=== PATIENT | female | born 1985 | race Native Hawaiian/Other Pacific Islander ===

== ENCOUNTER 2018-10-31 09:19 | Inpatient (IN) | payer MEDICAID ==
[2018-10-31 09:20] VITALS: BMI 30.1
--- NOTE | 2018-10-31 09:47 | C.PDOC ---
History Of Present Illness 33 y/o A0 12-week female sent here by the clinic for abnormal lab results. Pt was seen at [facility] last week for a check up and was called yesterday for abnormal results and advised to come to the hospital. States her hemoglobin has been as low as 8 before. No history of transfusion. Pt denies any physical complaints. Denies vaginal bleeding, dark stools, hematochezia, N/V, hemoptysis, hematemesis, fever, chills, dizziness, headache, palpitations, chest pain, abdominal pain, or any other associated symptoms. Time Seen by Provider: 10/31/18 09:30 Chief Complaint (Nursing): Abnormal Labs Past Medical History Vital Signs: Last Vital Signs Temp 98.5 F 10/31/18 09:22 Pulse 96 H 10/31/18 09:22 Resp 18 10/31/18 09:22 BP 113/76 10/31/18 09:22 Pulse Ox 100 10/31/18 09:22 - [facility] Procedures LOW CERVICAL (12/03/13) Family History: States: No Known Family Hx - Social History Hx Alcohol Use: No Hx Substance Use: No - Immunization History Hx Tetanus Toxoid Vaccination: No Hx Influenza Vaccination: No Hx Pneumococcal Vaccination: No Physical Exam - Physical Exam Appears: Well, No Acute Distress Skin: Normal Color, Warm, Dry Head: Atraumatic, Normacephalic, No Tenderness Eye(s): bilateral: Normal Inspection, PERRL, EOMI, Conjunctiva Pale Ear(s): Bilateral: Normal Nose: Normal Throat: Normal Neck: Normal Cardiovascular: Rhythm Regular Respiratory: Normal Breath Sounds Gastrointestinal/Abdominal: Normal Exam Rectal: Normal Exam, Rectal Tone (normal), Heme Negative Back: Normal Inspection, No CVA Tenderness Pelvic: Normal External Exam, Normal Speculum Exam, Normal Bimanual Exam Extremity: Normal ROM, No Tenderness, No Calf Tenderness, No Deformity, No Swelling Extremity: Bilateral: Atraumatic, Normal ROM, Other (pale) Pulses: Left Radial: Normal, Right Radial: Normal, Left Dorsalis Pedis: Normal, Right Dorsalis Pedis: Normal Neurological/Psych: Oriented x3, Normal Speech, Normal Cognition, Normal Motor, Normal Sensation ED Course And Treatment - Laboratory Results Result Diagrams: 10/31/18 09:48 12/20/18 09:48 Lab Interpretation: Abnormal Urine POC: Positive ECG: Viewed By Me ECG Rhythm: Sinus Rhythm ECG Interpretation: No Acute Changes Interpretation Of ECG: rate 88; NSR; short VA, no WPW; no STEMI, t wave inverted in V1 Rate From EC O2 Sat by Pulse Oximetry: 100 Pulse Ox Interpretation: Normal Medical Decision Making Medical Decision Making: Initial Plan: * CBC, CMP * UA, culture * hcg quant * TV US * IVF TV US shows live IUP 12 weeks gestation Hgb 6.5, will consent for blood transfusion and type/cross for PRBC. Risks of transfusion discussed in depth with patient, who verbalized understanding and was given the opportunity to ask questions. Witnessed by nursing. 10:[address] Velasquez, OBGYN, advises that since patient is under 20 weeks gestation, she can be admitted to medical service with OBGYN consult as needed. No extra considerations in setting of blood transfusion in OB patient. Advises 1g of Rocephin for UTI. 11:[address] Adair, who accepted patient for inpatient admission to telemetry with diagnosis of anemia. Vital signs stable at this time, patient resting comfortably in stretcher. Disposition Discussed With : Shawanda Velasquez Comment: No special considerations for blood transfusion in . 1g rocephin for UTI. - Disposition Disposition: HOSPITALIZED Disposition Time: 11:00 Condition: STABLE - Clinical Impression Clinical Impression: Anemia,
[2018-10-31 10:03] LABS: SQUAMOUS EPITHIAL 13 /hpf (0-5); URINE BACTERIA RARE (<OCC); URINE BILIRUBIN NEGATIVE (NEGATIVE); URINE BLOOD NEGATIVE (NEGATIVE); URINE CLARITY Hazy (Clear); URINE COLOR Yellow (YELLOW); URINE GLUCOSE (UA) NORMAL (Normal); URINE LEUKOCYTE ESTERASE 3+ Leu/uL (Negative); URINE PROTEIN NEGATIVE (NEGATIVE); URINE UROBILINOGEN NORMAL mg/dL (0.2-1.0)
[2018-10-31 10:05] LABS: ALB/GLOB RATIO 1.3 (1.0-2.1); ALT/SGPT 22 U/L (9-52); AST/SGOT 22 U/L (14-36); BLOOD UREA NITROGEN 5 mg/dL (7-17); CALCIUM 8.7 mg/dl (8.6-10.4); GFR NON-AFRICAN AMERICAN > 60
[2018-10-31 10:11] LABS: BASO # 0.1 K/uL (0.0-0.2); BASO % 0.7 % (0.0-2.0); EOS % 0.2 % (0.0-4.0); LYMPH # 2.5 K/uL (1.0-4.3); LYMPH % 24.4 % (20.0-40.0); MEAN CORPUSCULAR HEMOGLOBIN 13.3 pg (27.0-31.0); MEAN CORPUSCULAR HGB CONC 27.3 g/dL (33.0-37.0); MONO # 0.7 K/uL (0.0-0.8); MONO % 6.4 % (0.0-10.0); NEUT % 68.3 % (50.0-75.0); RBC 4.89 Mil/uL (3.80-5.20); RED CELL DISTRIBUTION WIDTH 23.1 % (11.5-14.5); WHITE BLOOD COUNT 10.3 K/uL (4.8-10.8)
[2018-10-31 10:12] LABS: MEAN CELL VOLUME 48.9 fL (81.0-99.0)
[2018-10-31 10:15] LABS: HEMOGLOBIN 6.5 g/dL (11.0-16.0)
[2018-10-31 10:36] LABS: INR 1.2; PROTHROMBIN TIME 12.7 SECONDS (9.7-12.2)
--- NOTE | 2018-10-31 11:04 | US ---
1st trimester ultrasound Indication: r/o ectopic. LMP 08/06/18 Comparison: None available Technique: Transabdominal pelvic ultrasound Findings: The uterus measures approximately 13.4 x 8.0 x 9.9 cm. Anteverted uterus. Cervix length measures approximately 3.7 cm. There is a single intrauterine fetus present. Yolk sac is not visualized. The crown-rump length measures 5.7 cm and is compatible with a gestational age of 12 weeks 2 days. There is heart motion which measured 150.2 BPM. The right ovary measures 5.0 x 2.5 x 3.5 cm. 2.6 x 2.4 x 2.2 cm probable right corpus luteal cyst. The left ovary measures 3.5 x 1.5 x 2.5. Flow was demonstrated to both ovaries. Impression: Live single intrauterine with estimated gestational age 12 weeks 2 days. heart rate 150.2 bpm. Advise an anomaly screen at 16-18 weeks gestational age 2.6 x 2.4 x 2.2 cm probable right corpus luteum.
[2018-10-31] MEDS ORDERED: cefTRIAXone 1 gm 1 GM/100 ML BAG IVPB ONE (12:05)
[2018-10-31 13:55] VITALS: RESP 20
--- NOTE | 2018-10-31 14:56 | CP.PCM.CON ---
History of Present Illness - History of Present Illness History of Present Illness: 33 year old female currently 12 weeks , sent to the hospital for anemia. The patient was found to have a low hgb at her PMDs and told to report to the hospital. In the ER, her hgb was found to be 6.5. She denies abnormal bleeding and bruising. Her hgb prior to becoming was around 8. Past medical history: Anemia Past surgical history: Family history: Denies hematologic and oncologic problems Social history: Denies tobacco, alcohol, and illicit drug use. Allergies: NKA Review of systems: All remaining review of systems including HEENT, cardiovascular, respiratory, gastrointestinal, genitourinary, musculoskeletal, dermatologic, neurologic, and psychiatric are negative unless mentioned in the HPI. Past Patient History - Past Medical History & Family History Past Medical History?: Yes - Past Social History Smoking Status: Never Smoked - PSYCHIATRIC Hx Substance Use: No - SURGICAL HISTORY Hx Surgeries: Yes Hx Section: Yes (X2) - ANESTHESIA Hx Anesthesia: Yes Hx Anesthesia Reactions: No Meds Allergies/Adverse Reactions: Allergies Allergy/AdvReac Type Severity Reaction Status Date / Time No Known Allergies Allergy Verified 10/31/18 09:27 Physical Exam - Head Exam Head Exam: ATRAUMATIC - Eye Exam Eye Exam: Normal appearance - ENT Exam ENT Exam: Mucous Membranes Dry - Respiratory Exam Respiratory Exam: NORMAL BREATHING PATTERN - Cardiovascular Exam Cardiovascular Exam: +S1, +S2 - GI/Abdominal Exam GI & Abdominal Exam: Normal Bowel Sounds - Extremities Exam Extremities exam: Positive for: normal inspection - Neurological Exam Neurological exam: Oriented x3 - Psychiatric Exam Psychiatric exam: Normal Affect, Normal Mood - Skin Skin Exam: Warm Results - Vital Signs Recent Vital Signs: Last Vital Signs Temp 98.3 F 10/31/18 14:32 Pulse 90 10/31/18 14:32 Resp 20 10/31/18 14:32 BP 96/59 L 10/31/18 14:32 Pulse Ox 96 10/31/18 14:32 - Labs Result Diagrams: 10/31/18 09:48 10/31/18 09:48 Labs: Laboratory Results - last 24 hr 10/31/18 10/31/18 10/31/18 09:48 09:48 09:48 WBC 10.3 RBC 4.89 Hgb 6.5 L* D Hct 23.9 L MCV 48.9 L D MCH 13.3 L MCHC 27.3 L RDW 23.1 H Plt Count 245 MPV 9.0 Neut % (Auto) 68.3 Lymph % (Auto) 24.4 [place] % (Auto) 6.4 Eos % (Auto) 0.2 Baso % (Auto) 0.7 Neut # (Auto) 7.0 Lymph # (Auto) 2.5 [place] # (Auto) 0.7 Eos # (Auto) 0.0 Baso # (Auto) 0.1 Differential Comment PT INR APTT Sodium 135 Potassium 4.0 Chloride 101 Carbon Dioxide 25 Anion Gap 13 BUN 5 L Creatinine 0.4 L Est GFR ( Amer) > 60 Est GFR (Non-Af Amer) > 60 Random Glucose 105 Calcium 8.7 Total Bilirubin 0.5 AST 22 ALT 22 Alkaline Phosphatase 56 Total Protein 7.0 Albumin 4.0 Globulin 3.1 Albumin/Globulin Ratio 1.3 Beta HCG, Quant 460556.00 Urine Color Yellow Urine Clarity Hazy Urine pH 7.0 Ur Specific [place] 1.009 Urine Protein Negative Urine Glucose (UA) Normal Urine Ketones Negative Urine Blood Negative Urine Nitrate Negative Urine Bilirubin Negative Urine Urobilinogen Normal Ur Leukocyte Esterase 3+ H Urine WBC (Auto) 11 H Urine RBC (Auto) 1 Ur Squamous Epith Cells 13 H Urine Bacteria Rare Blood Type Antibody Screen 10/31/18 10/31/18 09:58 09:58 WBC RBC Hgb Hct MCV MCH MCHC RDW Plt Count MPV Neut % (Auto) Lymph % (Auto) [place] % (Auto) Eos % (Auto) Baso % (Auto) Neut # (Auto) Lymph # (Auto) [place] # (Auto) Eos # (Auto) Baso # (Auto) Differential Comment PT 12.7 H INR 1.2 APTT 29 Sodium Potassium Chloride Carbon Dioxide Anion Gap BUN Creatinine Est GFR ( Amer) Est GFR (Non-Af Amer) Random Glucose Calcium Total Bilirubin AST ALT Alkaline Phosphatase Total Protein Albumin Globulin Albumin/Globulin Ratio Beta HCG, Quant Urine Color Urine Clarity Urine pH Ur Specific [place] Urine Protein Urine Glucose (UA) Urine Ketones Urine Blood Urine Nitrate Urine Bilirubin Urine Urobilinogen Ur Leukocyte Esterase Urine WBC (Auto) Urine RBC (Auto) Ur Squamous Epith Cells Urine Bacteria Blood Type A POSITIVE Antibody Screen Negative Assessment & Plan (1) Anemia Assessment and Plan: retic count, b12, folate, ferritin 2U PRBC will start IV iron Thank you for this interesting consult. Status: Acute
--- NOTE | 2018-10-31 17:43 | CP.PCM.HP ---
Past Patient History - Past Medical History & Family History Past Medical History?: Yes - Past Social History Smoking Status: Never Smoked - MUSCULOSKELETAL/RHEUMATOLOGICAL Hx Falls: No - PSYCHIATRIC Hx Substance Use: No - SURGICAL HISTORY Hx Surgeries: Yes Hx Section: Yes (X2) - ANESTHESIA Hx Anesthesia: Yes Hx Anesthesia Reactions: No Meds Allergies/Adverse Reactions: Allergies Allergy/AdvReac Type Severity Reaction Status Date / Time No Known Allergies Allergy Verified 10/31/18 09:27 Physical Exam - Constitutional Appears: Well - Head Exam Head Exam: ATRAUMATIC, NORMAL INSPECTION, NORMOCEPHALIC - Eye Exam Eye Exam: EOMI, Normal appearance, PERRL Pupil Exam: NORMAL ACCOMODATION, PERRL - ENT Exam ENT Exam: Mucous Membranes Moist, Normal Exam - Neck Exam Neck exam: Positive for: Normal Inspection - Respiratory Exam Respiratory Exam: Decreased Breath Sounds - Cardiovascular Exam Cardiovascular Exam: REGULAR RHYTHM, +S1, +S2 - GI/Abdominal Exam GI & Abdominal Exam: Diminished Bowel Sounds, Soft - Rectal Exam Rectal Exam: Deferred Results - Vital Signs Recent Vital Signs: Last Vital Signs Temp 98.3 F 10/31/18 16:55 Pulse 93 H 10/31/18 16:55 Resp 20 10/31/18 16:55 BP 105/63 10/31/18 16:55 Pulse Ox 99 10/31/18 16:55 - Labs Result Diagrams: 10/31/18 09:48 10/31/18 09:48 Labs: Laboratory Results - last 24 hr 10/31/18 10/31/18 10/31/18 09:48 09:48 09:48 WBC 10.3 RBC 4.89 Hgb 6.5 L* D Hct 23.9 L MCV 48.9 L D MCH 13.3 L MCHC 27.3 L RDW 23.1 H Plt Count 245 MPV 9.0 Neut % (Auto) 68.3 Lymph % (Auto) 24.4 [place] % (Auto) 6.4 Eos % (Auto) 0.2 Baso % (Auto) 0.7 Neut # (Auto) 7.0 Lymph # (Auto) 2.5 [place] # (Auto) 0.7 Eos # (Auto) 0.0 Baso # (Auto) 0.1 Differential Comment PT INR APTT Sodium 135 Potassium 4.0 Chloride 101 Carbon Dioxide 25 Anion Gap 13 BUN 5 L Creatinine 0.4 L Est GFR ( Amer) > 60 Est GFR (Non-Af Amer) > 60 Random Glucose 105 Calcium 8.7 Total Bilirubin 0.5 AST 22 ALT 22 Alkaline Phosphatase 56 Total Protein 7.0 Albumin 4.0 Globulin 3.1 Albumin/Globulin Ratio 1.3 Beta HCG, Quant 772723.00 Urine Color Yellow Urine Clarity Hazy Urine pH 7.0 Ur Specific [place] 1.009 Urine Protein Negative Urine Glucose (UA) Normal Urine Ketones Negative Urine Blood Negative Urine Nitrate Negative Urine Bilirubin Negative Urine Urobilinogen Normal Ur Leukocyte Esterase 3+ H Urine WBC (Auto) 11 H Urine RBC (Auto) 1 Ur Squamous Epith Cells 13 H Urine Bacteria Rare Blood Type Antibody Screen 10/31/18 10/31/18 09:58 09:58 WBC RBC Hgb Hct MCV MCH MCHC RDW Plt Count MPV Neut % (Auto) Lymph % (Auto) [place] % (Auto) Eos % (Auto) Baso % (Auto) Neut # (Auto) Lymph # (Auto) [place] # (Auto) Eos # (Auto) Baso # (Auto) Differential Comment PT 12.7 H INR 1.2 APTT 29 Sodium Potassium Chloride Carbon Dioxide Anion Gap BUN Creatinine Est GFR ( Amer) Est GFR (Non-Af Amer) Random Glucose Calcium Total Bilirubin AST ALT Alkaline Phosphatase Total Protein Albumin Globulin Albumin/Globulin Ratio Beta HCG, Quant Urine Color Urine Clarity Urine pH Ur Specific [place] Urine Protein Urine Glucose (UA) Urine Ketones Urine Blood Urine Nitrate Urine Bilirubin Urine Urobilinogen Ur Leukocyte Esterase Urine WBC (Auto) Urine RBC (Auto) Ur Squamous Epith Cells Urine Bacteria Blood Type A POSITIVE Antibody Screen Negative
[2018-11-01 08:35] LABS: ALB/GLOB RATIO 1.2 (1.0-2.1); ALBUMIN 3.4 g/dL (3.5-5.0); ALT/SGPT 23 U/L (9-52); AST/SGOT 29 U/L (14-36); BLOOD UREA NITROGEN 5 mg/dL (7-17); CALCIUM 8.4 mg/dl (8.6-10.4); GFR NON-AFRICAN AMERICAN > 60
[2018-11-01 08:37] LABS: BASO # 0.1 K/uL (0.0-0.2); EOS # 0.1 K/uL (0.0-0.7); EOS % 0.8 % (0.0-4.0); HEMOGLOBIN 7.5 g/dL (11.0-16.0); LYMPH % 22.7 % (20.0-40.0); MEAN CORPUSCULAR HEMOGLOBIN 15.1 pg (27.0-31.0); MEAN CORPUSCULAR HGB CONC 28.3 g/dL (33.0-37.0); MEAN PLATELET VOLUME 10.1 fL (7.2-11.7); MONO # 0.7 K/uL (0.0-0.8); MONO % 7.2 % (0.0-10.0); NEUT # 6.1 K/uL (1.8-7.0); NEUT % 68.3 % (50.0-75.0); RBC 5.01 Mil/uL (3.80-5.20); RED CELL DISTRIBUTION WIDTH 23.6 % (11.5-14.5)
[2018-11-01 08:48] LABS: MEAN CELL VOLUME 53.1 fL (81.0-99.0)
[2018-11-01 09:23] LABS: FERRITIN 5.2 ng/mL
[2018-11-01] MEDS: Prenatal Multivit/Folic Acid/Iron Tab PO SCH (09:39)
[2018-11-01 09:53] LABS: FOLATE 11.7 ng/mL
[2018-11-01] MEDS ORDERED: Ferric Sodium Gluconat Complex 125 MG in Sodium Chloride 0.9% 100 ML IVPB SCH (10:00)
[2018-11-01] MEDS ORDERED: Ferric Sodium Gluconat Complex 62.5 mg/5 ml Vial IVPB SCH (10:00)
--- NOTE | 2018-11-01 10:54 | CP.PCM.PN ---
Subjective - Date & Time of Evaluation Date of Evaluation: 11/01/18 Time of Evaluation: 10:49 - Subjective Subjective: Medicine Note for Dr. Adriano Adair's Service Patient was seen and examined at bedside. Patient reports she feels well today. Denied any abdominal pain, n/v/ vaginal bleeding, vaginal discharge, denied any hematuria, dysuria. Objective - Vital Signs/Intake and Output Vital Signs (last 24 hours): Temp Pulse Resp BP Pulse Ox 97.6 F 80 20 101/64 97 11/01/18 07:58 11/01/18 07:58 11/01/18 07:58 11/01/18 07:58 11/01/18 07:58 - Medications Medications: Current Medications Ferric Sodium Gluconate Complex (Ferrlecit) 125 mg IVPB DAILY BENJAMIN Stop: 11/09/18 10:01 Ferric Sodium Gluconate Complex 125 mg/ Sodium Chloride 110 mls @ 110 mls/hr IVPB DAILY BENJAMIN Stop: 11/09/18 10:01 Last Admin: 11/01/18 09:39 Dose: 110 mls/hr Nitrofurantoin Macrocrystals (Macrobid) 100 mg PO Q12H BENJAMIN; Protocol Stop: 11/08/18 10:01 Multivit/Folic Acid/Iron () 1 tab PO DAILY BENJAMIN - Labs Labs: 11/01/18 07:40 11/01/18 05:00 PT 12.7 SECONDS (9.7-12.2) H 10/31/18 09:58 INR 1.2 10/31/18 09:58 APTT 29 SECONDS (21-34) 10/31/18 09:58 - Constitutional Appears: No Acute Distress - Head Exam Head Exam: NORMAL INSPECTION, NORMOCEPHALIC - Eye Exam Eye Exam: EOMI, Normal appearance, PERRL Pupil Exam: NORMAL ACCOMODATION - ENT Exam ENT Exam: Mucous Membranes Moist - Respiratory Exam Respiratory Exam: Clear to Ausculation Bilateral, NORMAL BREATHING PATTERN - Cardiovascular Exam Cardiovascular Exam: +S1, +S2 - GI/Abdominal Exam GI & Abdominal Exam: Soft, Normal Bowel Sounds. absent: Distended, Tenderness Additional comments: gravid abdomen - Extremities Exam Extremities Exam: Normal Inspection. absent: Pedal Edema, Tenderness - Neurological Exam Neurological Exam: Alert, Awake, Oriented x3 - Psychiatric Exam Psychiatric exam: Normal Affect, Normal Mood - Skin Skin Exam: Dry, Intact, Normal Color, Warm Assessment and Plan - Assessment and Plan (Free Text) Plan: Asymptomatic Iron Deficiency Anemia - Heme/Onc - Dr. Cash consulted - Hemoglobin 6.5 on admission - Anemia workup ordered Management: - Transfused 2 units - Iron IV started for the patient UTI - noted on UA - UC- ordered, pending - Received 1 dose of Rocephin - Will continue with Macrobid 100mg PO BID x 10 days total , 12 weeks - - Prior C-Sections x 2 Prophylactic Measures - GI PPX: not indicated - DVT PPX: SCDs, VTE c/i Disposition: Anticipate DC after repeat CBC after 2nd transfusion. Will provide scripts for iron, prenatals, and macrobid for her UTI. Patient strongly encouraged to follow up with DIRECTOR TRADING. Recommended a nearby OB, if patient does not want to continue with the [facility]. All management as per Bertha Jones DO PGY2
[2018-11-01] MEDS ORDERED: Benzocaine/Menthol (Cepacol) Lozenge MT PRN (11:30)
--- NOTE | 2018-11-01 12:00 | CARD ---
APPROVED REPORT Date of service: 10/31/2018 EKG Measurement Heart [id number] <Conclusion> Sinus rhythm with short [place] Otherwise normal ECG
[2018-11-01 16:46] LABS: HEMOGLOBIN 8.9 g/dL (11.0-16.0); MEAN CELL VOLUME 56.5 fL (81.0-99.0); MEAN CORPUSCULAR HEMOGLOBIN 16.3 pg (27.0-31.0); MEAN CORPUSCULAR HGB CONC 28.9 g/dL (33.0-37.0); MEAN PLATELET VOLUME 9.9 fL (7.2-11.7); RBC 5.47 Mil/uL (3.80-5.20); RED CELL DISTRIBUTION WIDTH 38.5 % (11.5-14.5); WHITE BLOOD COUNT 11.7 K/uL (4.8-10.8)
--- NOTE | 2018-11-01 18:13 | CP.PCM.PN ---
Subjective - Date & Time of Evaluation Date of Evaluation: 11/01/18 Time of Evaluation: 08:15 - Subjective Subjective: clinically same Objective - Vital Signs/Intake and Output Vital Signs (last 24 hours): Temp Pulse Resp BP Pulse Ox 97.7 F 88 20 103/66 97 11/01/18 15:00 11/01/18 15:00 11/01/18 15:00 11/01/18 15:00 11/01/18 15:00 Intake and Output: 11/01/18 11/01/18 06:59 18:59 Intake Total 325 Balance 325 - Medications Medications: Current Medications Benzocaine/Menthol (Cepacol Sore Throat) 1 [place] QID PRN PRN Reason: Sore Throat Ferric Sodium Gluconate Complex (Ferrlecit) 125 mg IVPB DAILY BENJAMIN Stop: 11/09/18 10:01 Last Admin: 11/01/18 10:00 Dose: Not Given Nitrofurantoin Macrocrystals (Macrobid) 100 mg PO Q12H BENJAMIN; Protocol Stop: 11/08/18 10:01 Last Admin: 11/01/18 09:39 Dose: 100 mg Multivit/Folic Acid/Iron () 1 tab PO DAILY BENJAMIN Last Admin: 11/01/18 09:39 Dose: 1 tab - Labs Labs: 11/01/18 16:39 11/01/18 05:00 PT 12.7 SECONDS (9.7-12.2) H 10/31/18 09:58 INR 1.2 10/31/18 09:58 APTT 29 SECONDS (21-34) 10/31/18 09:58
[2018-11-02 08:06] VITALS: BP 102/63; TEMP 98; O2SAT 98
[2018-11-02] MEDS ORDERED: Ferric Sodium Gluconat Complex 125 MG in Sodium Chloride 0.9% 100 ML IVPB SCH (10:00)
[2018-11-02] MEDS ORDERED: Ferric Sodium Gluconat Complex 125 MG in Sodium Chloride 0.9% 100 ML IVPB ONE (10:30)
[2018-11-02] MEDS: Prenatal Multivit/Folic Acid/Iron Tab PO SCH (10:36)
[2018-11-02 13:33] VITALS: PULSE 91
--- NOTE | 2018-11-02 15:16 | CP.PCM.PN ---
Subjective - Date & Time of Evaluation Date of Evaluation: 11/02/18 Time of Evaluation: 11:00 - Subjective Subjective: alert and orientedx3, denies pain, NAD. Objective - Vital Signs/Intake and Output Vital Signs (last 24 hours): Temp Pulse Resp BP Pulse Ox 98 F 91 H 20 102/63 98 11/02/18 08:04 11/02/18 12:00 11/02/18 08:04 11/02/18 08:04 11/02/18 08:04 Intake and Output: 11/02/18 11/02/18 06:59 18:59 Intake Total 200 Balance 200 - Labs Labs: 11/01/18 16:39 11/01/18 05:00 PT 12.7 SECONDS (9.7-12.2) H 10/31/18 09:58 INR 1.2 10/31/18 09:58 APTT 29 SECONDS (21-34) 10/31/18 09:58 Assessment and Plan - Assessment and Plan (Free Text) Assessment: 33 year old female admitted with anemia, UTI, seen and examined. Feeling better, denies any pain, hemoglobin 8.9. Plan to discharge home as per DR Santhosh Adair on keflex for 7 days. Advised to follow up with RECEIVING CLERK in 1 week.
== END 2018-11-02 13:15 | disposition home or self-care (01) | DRG 566 ==
LOC: C.ER 09:19 → C.9E 11:52 → C.5S 13:52
PROVIDERS: ADMIT Internal Medicine Nephrology; ATTEND Internal Medicine Nephrology
DX: O99.011 Anemia complicating pregnancy, first trimester (principal); O23.41 Unspecified infection of urinary tract in pregnancy, first trimester; Z3A.12 12 weeks gestation of pregnancy; D64.9 Anemia, unspecified